=== PATIENT | male | born 1985 | race Caucasian/White ===

== ENCOUNTER 2021-01-13 17:46 | Emergency (ER) | payer OTHER, SELFPAY ==
--- NOTE | 2021-01-13 18:04 | ED.CPR ---
HPI - CPR General Chief Complaint: Cardiac Arrest/CPR Stated Complaint: CARDIAC ARREST Time Seen by Provider: 01/13/21 18:03 Source: EMS Mode of arrival: EMS History of Present Illness HPI narrative: Patient obese heavy built with hypertension and sleep apnea uses cocaine was at home earlier playing video games suddenly family heard thud of fall went to see him in the room was on the floor with shallow breathing. CP started PD came give 4 mg of Narcan intranasally CPR continued EMS reach 1st rhythm was PEA another 2 mg of Narcan given IV after 10 minutes of CPR cruller maker showed VFib 3 shocks were given patient was intubated,300 mg of amiodarone was given CPR continued patient went to asystole again and brought to the ER. Patient received CPR for about 40 minutes by EMS no signs of trauma. When patient arrived in the ER cruller maker showed asystole body warm patient did not use any drugs lately , last time he used cocaine was 07/19, and has not been to a hospital for any medical reason Related Data Allergies Allergy/AdvReac Type Severity Reaction Status Date / Time No Known Allergies Allergy Verified 01/13/21 18:10 [facility] Past Medical History Medical History (Updated 01/13/21 @ 19:22 by Nery Buchanan) Drug use HTN (hypertension) Obesity Psychosocial stressors Sleep apnea Social History Social History Advance Directives: No Advance Directives Information Provided: No Physical Exam Vital Signs: Vital Signs: Body Mass Index 52.7 Const: General: well developed Nutritional Appearance: obese HENMT: Head: Yes normocephalic and Yes atraumatic Eyes: Pupils: Dilated pupils and Fixed pupils Neck: Neck: No midline deformity Chest: Chest palpation & inspection: normal inspection of the chest Resp: Other: Equal air entry bilateral with Ambu Cardio: Other: Asystole GI: Palpation (GI): Soft to palpation Skin: General skin exam: no rashes or lesions noted Course Course Course Narrative: CPR continued 3 doses of epi were given no response bedside echo done asystole no pericardial effusion pupils fixed and dilated no spontaneous breathing no spontaneous cardiac activity body warm, patient pronounced at 17:59 .patient accepted by durable medical equipment repairer case [id number] accepting durable medical equipment repairer Dr Gabriel Shepherd MDM - Cardiac Arrest/CPR Lab Data Labs: Lab Results 01/13/21 Range/Units 17:57 POC Glucose 290 H (60-115) mg/dL Discharge Plan Discharge Clinical Impression: Cardiac arrest Patient Disposition: Discharge Date/Time: 01/13/21 21:37 Date/Time: 01/13/21 17:59
[2021-01-13 18:07] LABS: Glucose, Whole Blood 290 mg/dL (60-115)
[2021-01-13 19:17] VITALS: BMI 52.7
--- NOTE | 2021-01-13 19:24 | PC.NURSE ---
Pt brought in by [facility] Crew at 1747. Per ems:Pt was a witnessed cardiac arrest. LWK approximately [id number]. Pt was walking around at home reportedly neurologically intact, and did not offer any complaints. Pt had ambulated to his bedroom, where family heard a drop and found him unresponsive. Family did call 911. Per [facility], pt was given 4mg Narcan IN prior to their arrival by [facility] and found to have agonal respirations. PD then preeceded to provide ventilations via BVM. Upon ALS arrival, pt was found to be apneic and pulseless. CPR was initiated. ACLS initiated. Pt was intubated using a bougie, 8.0 tube 27cm at lip. COnfirmed with visualization, +capnography of 64. Pupils were found to be non reactive to EMS assessment. 1mg epi was given Q5 minutes. At approximately 10 minutes into EMS arrest, pt had rhythem change from PEA/Aystole to Vfib. Preceded to have 3 shocks prior to arrival at the facility. Pt received 300mg Amioderone, 1g Calcium, 1 amp of Bicarb, 500ML NS. PT was aystole upon arrival at [facility] Code team: : Brian RN: Jocelyn Castañeda Sarah, Sara, Liz PCT: Murali Camejo RT: Mikaela Godoy 1746: ems arrival and transfer to [facility] 174: 1mg epi given via IO in left tib/fib, ETCO2 of 41 175: Iv established, 20g rt forearm, 2nd epi given 175: Pulse check. US applied. No cardiac activity. Plan for two minutes of CPR then recheck. BGL was 28, recheck to be done, due to ? of dilution. 175: 1mg Epi given via IV. [id number] 175: CPR continued. H's&T's discussed. 175: CPR held. No cardiac activity noted on US. 175: Resuscitation withheld. Time of . 182: [facility] contacted-[facility]orena , Accepting pending ME 1906: Per Dr. Torres Pt is to be ME case. Accepting Doctor Gabriel Shepherd.
--- NOTE | 2021-01-13 20:11 | PC.NURSE ---
Father's name Vishal Horowitzoleg contact number [phone]
--- NOTE | 2021-01-13 20:16 | PC.NURSE ---
clothing (shirts/Underware/Shorts) realeased into custody of pt's mother Roselia
--- NOTE | 2021-01-13 20:47 | PC.NURSE ---
Binu from [employer] [facility] contacted. Informed that pt is ME case and pt will be transported to [facility]. efrain verbalized confirmation of information.
[2021-01-22 08:47] LABS: Glucose, Whole Blood 28 mg/dL (60-115)
== END 2021-01-13 21:37 | disposition expired ==
PROVIDERS: Emergency Provider Internal Medicine
DX: I46.9 Cardiac arrest, cause unspecified (principal); F14.90 Cocaine use, unspecified, uncomplicated
CPT/HCPCS: 82947; 99283; J0171